=== PATIENT | male | born 1945 | race Caucasian/White ===

== ENCOUNTER → 2020-05-27 15:20 | Outpatient (CLI) | payer MEDICARE, SELFPAY ==
[2020-05-27] MEDS: COVID-19 VACC #1, MRNA(MOD) 100 MCG/0.5 ML VIAL IM (15:31)
== END ==
PROVIDERS: Visit Provider Internal Medicine
DX: Z23 Encounter for immunization (principal)
CPT/HCPCS: 0011A; 91301

== ENCOUNTER → 2020-06-26 15:53 | Outpatient (CLI) | payer MEDICARE, SELFPAY ==
[2020-06-26] MEDS: COVID-19 VACC #2, MRNA(MOD) 100 MCG/0.5 ML VIAL IM (16:02)
== END ==
PROVIDERS: Visit Provider Internal Medicine
DX: Z23 Encounter for immunization (principal)
CPT/HCPCS: 0012A; 91301

== ENCOUNTER 2024-02-22 06:47 | Inpatient (IN) | payer MEDICARE, SELFPAY ==
[2024-02-22] VITALS (74 sets, daily range): BP systolic 112–161; BP diastolic 55–97; PULSE 50–158; RESP 12–41; TEMP 36.1–36.7; O2SAT 88–96; BMI 36.9
--- NOTE | 2024-02-22 06:55 | EKG_ITS ---
[facility] [id number] [place] [id number] Test Date: 2024-02-22 Pat Name: Loi Knapp Department: Room: Gender: Male Community Administrator: : 1945 Requested By: Order Number: [id number] Reading MD: Stanlye Rivera Measurements Intervals [place] Rate: 141 P: SD: QRS: -39 QRSD: 98 T: 109 QT: 330 QTc: 505 Interpretive Statements Critical Test Result: High HR Atrial fibrillation with rapid ventricular response Left axis deviation Moderate voltage criteria for LVH, may be normal variant ( R in aVL , [place] product ) Cannot rule out Anterior infarct , age undetermined ST & T wave abnormality, consider lateral ischemia Electronically Signed On 02-22-2024 11:26:39 PDT by Stanley Rivera
--- NOTE | 2024-02-22 06:56 | DI.RAD.S_ITS ---
PROCEDURE: XR CHEST 1V INDICATIONS: New onset AFib TECHNIQUE: One view of the chest was acquired. COMPARISON: None. FINDINGS: Surgical changes and devices: None. Lungs and pleura: Lungs are clear. No pleural effusions or pneumothorax. Calcified pleural plaques. Mediastinum: Mediastinal contours appear normal. Heart size is normal. Bones and chest wall: No suspicious bony lesions. Overlying soft tissues appear unremarkable. IMPRESSION: No acute cardiopulmonary abnormality is seen. Dictated by: Bert Tate M.D. on 02/22/2024 at 7:55 Approved by: Bert Tate M.D. on 02/22/2024 at 7:57
--- NOTE | 2024-02-22 07:04 | PC.NURSE ---
pt also c/o right shoulder pain d/t fall no decrease in ROM no motor sensory deficits noted, no obvious deformities noted
[2024-02-22 07:08] LABS: Add Manual Diff / Slide Review NO; Basophils Absolute Auto 100 /uL (0-100); Basophils Percent Auto 0.8 % (0-2); Eosinophils Absolute Auto 400 /uL (0-450); Eosinophils Percent Auto 2.8 % (2-4); Hematocrit 48.9 % (41-53); Hemoglobin 16.6 g/dL (13.5-17.5); Lymphocytes Absolute Auto 2200 /uL (1100-4500); Mean Corpuscular HGB Conc 33.9 % (30-36); Mean Corpuscular Hemoglobin 30.1 PG (26-34); Mean Corpuscular Volume 88.8 fL (80-100); Monocytes Absolute Auto 700 /uL (0-900); Monocytes Percent Auto 4.6 % (3-14); Neutrophils Absolute Auto 12400 /uL (1500-7000); Neutrophils Percent Auto 77.8 % (50-75); Platelet Count 281 X10^3/uL (150-400); Red Cell Distribution Width 14.3 % (11.6-14.8); White Blood Cell Count 15.9 X10^3/uL (4.5-11.0)
[2024-02-22 07:10] LABS: INR 1.1 (0.9-1.3); Prothrombin Time 12.5 SECONDS (9.4-12.5)
[2024-02-22 07:12] LABS: PTT Partial Thromboplastin Tim 36 SECONDS (25.1-36.5)
[2024-02-22] MEDS: dilTIAZem 25 MG/5 ML SDV 20 MG IV (07:13)
[2024-02-22 07:14] LABS: Alanine Aminotransferase 42 IU/L (<50); Albumin 4.5 g/dL (3.5-5.0); Albumin Globulin Ratio 1.4 (1.0-2.8); Alkaline Phosphatase 121 U/L (38-126); Aspartate Aminotransferase 39 IU/L (17-59); BUN Creatinine Ratio 23.4 (6-22); Bilirubin Total 0.8 mg/dL (0.2-1.3); Blood Urea Nitrogen 33 mg/dL (9-20); Calcium 9.9 mg/dL (8.4-10.2); Carbon Dioxide 28 mmol/L (22-32); Chloride 98 mmol/L (98-107); Creatine Kinase 215 U/L (55-170); Estimated Glomerular Filt Rate 51 mL/min (>60); Globulin 3.3 g/dL (1.7-4.1); Glucose 246 mg/dL (80-110); HEMOLYSIS < 15 (0-50); Lipase 94 U/L (23-300); Magnesium 1.9 mg/dL (1.6-2.3); Potassium 3.5 mmol/L (3.4-5.1); Sodium 138 mmol/L (137-145); Total Protein 7.8 g/dL (6.3-8.2)
[2024-02-22 07:25] LABS: Troponin I < 0.012 ng/mL (0.01-0.034)
--- NOTE | 2024-02-22 07:32 | ED_ITS ---
HPI - Arrhythmia/Palpitations General Chief Complaint: Arrhythmia/Palpitations Stated Complaint: lighthead/dizzy Time Seen by Provider: 02/22/24 06:56 Source: patient, RN notes reviewed and old records reviewed Mode of arrival: EMS Limitations: no limitations History of Present Illness HPI narrative: 78-year-old male history of hypertension dyslipidemia gout who presents with complaint of lightheadedness and fall patient states he woke up felt very lightheaded and had irregular and fast heart rate. Patient states that he did not lose consciousness but did fall did hit his head has a small abrasion on his forehead. States no headache, no loss of conscious no neck or back pain. No chest pain or shortness of breath but can feel that his heart rate is EFAST- negative. lung sliding bilaterally, no free fluid, no hemopericardium, no fluid on left or right gutter.. He states he was very sweaty. He states he feels improved after receiving some medication in his heart rate he does not feel currently although the rate is in the 1 teens and still irregularly irregular. He notes over the past several years he has had episodes sometimes hours at a time where it is felt fast and irregular. He is never mentioned this to his physician. States he did feel little nauseated earlier no vomiting. Denies any swelling in extremities, no issues with bowel movements or urination. Patient does not take any anticoagulants, takes, statin medication for hypertension. Denies any aspirin or thinners. States only prior surgery was a hernia repair. No known drug allergies. Denies tobacco, alcohol or recreational drugs. Primary care is Dr. Nguyen [facility]. He has not ever seen a culture media laboratory assistant before. Related Data Allergies Allergy/AdvReac Type Severity Reaction Status Date / Time No Known Drug Allergies Allergy Verified 02/22/24 07:12 Review of Systems Review of Systems ROS Unobtainable: All systems reviewed & are unremarkable except as noted in HPI and below Exam Narrative Exam Narrative: GEN: well nourished, well appearing male, alert and oriented x 3, patient appears to be in mild distress. HEENT: Patient has a abrasion on his forehead, pupils are equal round reactive to light, extraocular movements are intact, nares are clear, there is no conjunctival pallor. Throat is clear without any exudates, erythema, tonsillar enlargement or uvular deviation HEART: Regular rate and rhythm without murmur, clicks, rubs. No carotid bruits, pulses are equal in upper and lower extremities LUNGS:Lungs clear to auscultation, no wheezes, rales, crackles, chest moves symmetrically ABD:bowel sounds normal, soft, non-tender, no guarding, rebound, rigidity, no masses noted, no hepatosplenomegaly :No CVA tenderness MSCL: Non-tender, no muscle atrophy, muscles strength 5/5 upper and lower extremities, full range of motion. NEURO:CN 2-12 intact, sensation normal Initial Vital Signs Initial Vital Signs: Vital Signs Temperature 97 F L 02/22/24 06:58 Pulse Rate 143 H 02/22/24 06:58 Respiratory Rate 18 02/22/24 06:58 Blood Pressure 118/97 H 02/22/24 06:58 Pulse Oximetry 93 02/22/24 06:58 Oxygen Delivery Method Room Air 02/22/24 06:58 Scores CHADS-VASc Congestive heart failure: no Hypertension: yes Age 75 years or older: yes Diabetes mellitus: no Stroke, TIA, or TE: no Vascular disease: no Age 65 to 74 years: no Sex category (female): Male CHADS-VASc Score: 3 Course Orders Ordered: ED Orders 02/22/24 06:40 Complete Blood Count AUTO DIFF Stat Comprehensive Metabolic Panel Stat Lipase Stat Magnesium Stat PTT Partial Thromboplastin Felix Stat Prothrombin Time INR Stat Troponin & CK Cardiac Panel Stat 02/22/24 06:56 XR chest 1V Stat EKG-12 Lead Stat 02/22/24 07:45 CT head/brain wo con Stat 02/22/24 07:56 Covid-19 + FLU A/B + RSV - PCR Stat Diltiazem HCl 125 mg/ Sodium (Chloride) 125 mls @ 5 mls/hr IV TITRATE QUAN; Protocol Last Titration: 02/22/24 08:21 Dose: 12.5 mg/hr, 12.5 mls/hr Documented By: Titration: 02/22/24 08:09 Dose: 10 mg/hr, 10 mls/hr Documented By: Admin: 02/22/24 07:46 Dose: 5 mg/hr, 5 mls/hr Documented By: MPO Discontinued Medications Diltiazem HCl (Diltiazem 25 Mg/5 Ml Sdv) 20 mg IV NOW ONE Stop: 02/22/24 06:58 Last Admin: 02/22/24 07:13 Dose: 20 mg Documented By: TAY Diltiazem HCl (Diltiazem 30 Mg Tablet) 30 mg PO NOW ONE Stop: 02/22/24 08:30 Vital Signs Vital signs: Vital Signs - 8 hr 02/22/24 06:58 02/22/24 07:13 02/22/24 07:46 Temperature 97 F L Pulse Rate 143 H 145 H 126 H Respiratory Rate 18 Blood Pressure 118/97 H 130/78 129/72 Pulse Oximetry 93 Oxygen Delivery Method Room Air MDM - Arrhythmia/Palpitations Lab Data 02/22/24 06:40 02/22/24 06:40 Labs: Lab Results 02/22/24 Range/Units 06:40 WBC 15.9 H (4.5-11.0) X10^3/uL RBC 5.50 (4.5-5.9) X10^6/uL Hgb 16.6 (13.5-17.5) g/dL Hct 48.9 (41-53) % MCV 88.8 (80-100) fL MCH 30.1 (26-34) PG MCHC 33.9 (30-36) % RDW 14.3 (11.6-14.8) % Plt Count 281 (150-400) X10^3/uL Neut % (Auto) 77.8 H (50-75) % Lymph % (Auto) 14.0 L (25-40) % [place] % (Auto) 4.6 (3-14) % Eos % (Auto) 2.8 (2-4) % Baso % (Auto) 0.8 (0-2) % Neut # (Auto) 69980 H (6609-9475) /uL Lymph # (Auto) 2200 (5575-1459) /uL [place] # (Auto) 700 (0-900) /uL Eos # (Auto) 400 (0-450) /uL Baso # (Auto) 100 (0-100) /uL PT 12.5 (9.4-12.5) SECONDS INR 1.1 (0.9-1.3) APTT 36 (25.1-36.5) SECONDS Sodium 138 (137-145) mmol/L Potassium 3.5 (3.4-5.1) mmol/L Chloride 98 (98-107) mmol/L Carbon Dioxide 28 (22-32) mmol/L BUN 33 H (9-20) mg/dL Creatinine 1.41 H (0.66-1.25) mg/dL Estimated GFR 51 L (>60) mL/min BUN/Creatinine Ratio 23.4 H (6-22) Glucose 246 H (80-110) mg/dL Calcium 9.9 (8.4-10.2) mg/dL Magnesium 1.9 (1.6-2.3) mg/dL Total Bilirubin 0.8 (0.2-1.3) mg/dL AST 39 (17-59) IU/L ALT 42 (<50) IU/L Alkaline Phosphatase 121 (38-126) U/L Total Creatine Kinase 215 H (55-170) U/L Troponin I < 0.012 (0.01-0.034) ng/mL Total Protein 7.8 (6.3-8.2) g/dL Albumin 4.5 (3.5-5.0) g/dL Globulin 3.3 (1.7-4.1) g/dL Albumin/Globulin Ratio 1.4 (1.0-2.8) Lipase 94 (23-300) U/L ECG Data Attestation: I personally reviewed and interpreted this ECG as follows: Prior ECG tracings: not available for review Interpretation: AFib with rapid ventricular response rate of 141 QRS of 98 QTC 505, nonspecific change. No priors for comparison. MDM Narrative Medical decision making narrative: 78-year-old male AFib RVR did have near syncopal episode and did hit his head with the abrasion. Denies headache he has not anticoagulated but patient will likely end up on anticoagulants so head CT was ordered, labs EKG and chest x-ray were ordered as well. Labs show white count of 15.9 hemoglobin of 16 platelets of 281. Coags are negative, creatinine is 1.41 no priors for comparison BUN 33, sodium is 138 potassium 3.5 chloride 98 CO2 is 28 glucose is 246 normal LFTs CK is 215 troponins less than 0.012. EKG shows AFib with RVR. Chest x-ray shows no acute change Head CT was negative for acute change does show chronic sinusitis. RSV/influenza/COVID was obtained as patient has had recent nasal congestion upper respiratory infection. Patient states he did have a home swab which was negative. Patient received 20 mg of diltiazem with improvement in rate although not complete normalization is swollen atrial fibrillation. Patient is not anticoagulated describes having intermittent episodes for hours at a time over at least a year or 2. Did not felt appropriate for candidate for cardioversion so started on diltiazem drip. Patient's heart rate 121 blood pressures have been maintaining diltiazem was increased. Spoke with Dr. Rivera hospitalist accepts for admission does ask that we give 30 mg of diltiazem orally. Critical Care Time Critical Care Time Critical Care Time: Yes Total Critical Care Time: 35 Attestation: The high probability of a clinically significant, sudden or life threatening deterioration of the cardiac system(s) required my full and direct attention, intervention and personal management. The aggregate critical care time was [--] minutes. This time is in addition to time spent performing reported procedures but includes the following: [x] Data Review and interpretation [x] Patient assessment and monitoring of vital signs [x] Documentation [x] Medication orders and management Discharge Plan Departure Patient Disposition: Admitted As Inpatient Clinical Impression: Atrial fibrillation with rapid ventricular response Admit Date/Time: 02/22/24 08:30 Admit Provider: Stanley Rivera
--- NOTE | 2024-02-22 07:45 | DI.CT.S_ITS ---
PROCEDURE: CT HEAD/BRAIN WO CON INDICATIONS: dizzy, hit head TECHNIQUE: Noncontrast 4.5 mm thick angled axial sections acquired from the foramen magnum to the vertex, with coronal and sagittal reformats. For radiation dose reduction, the following was used: automated exposure control, adjustment of mA and/or kV according to patient size. COMPARISON: None. FINDINGS: Image quality: Diagnostic. CSF spaces: Basal cisterns are patent. No extra-axial fluid collections. The ventricles are symmetric in size and shape. Brain: No intracranial bleeds or masses. There is cerebral volume loss for age, with resultant ventricular and sulcal prominence. There are periventricular and deep white matter chronic small vessel ischemic changes. There is intracranial internal carotid artery atherosclerosis. Skull and face: Calvarium and visualized facial bones appear intact, without suspicious lesions. Sinuses: Bilateral anterior ethmoid patchy opacification and mucosal thickening. Bilateral maxillary sinus mucosal thickening. No air-fluid levels. IMPRESSION: No acute intracranial pathology. Chronic sinusitis. Dictated by: Bert Tate M.D. on 02/22/2024 at 7:58 Approved by: Bert Tate M.D. on 02/22/2024 at 7:59
[2024-02-22] MEDS: dilTIAZem 125 MG in SODIUM CHLORIDE 0.9% 100 ML IV (07:46)
[2024-02-22 08:39] LABS: COVID-19 CEPHEID 4-PLEX PCR Negative (Negative); Influenza A - CEPHEID Flu A NEGATIVE (NEGATIVE); Influenza B - CEPHEID Flu B NEGATIVE (NEGATIVE); Respiratory Syncytial Virus Negative (Negative)
[2024-02-22] MEDS: dilTIAZem 30 MG TABLET PO (08:41)
--- NOTE | 2024-02-22 09:08 | PC.NURSE ---
Pt reports that he is feeling lightheaded and weak. Denies cp/sob HR has improved and remains in 110s. Pt a&ox4.
--- NOTE | 2024-02-22 10:36 | PC.NURSE ---
Day shift: Pt in room 227 from ED at approx 1015. He is ICU status. Dilt drip titrated down from 12 mg/hr to 6mg/hr per protocol. VS WNL. Pt does state that he becomes lightheaded when sitting up and standing. Spouse at bedside for support. Oriented to room and call light. Uses urinal while standing. Dr Rivera aware Pt in room. Awaiting ICU orders at 1040. Will continue to monitor. Pt is on tele also.
--- NOTE | 2024-02-22 10:36 | PM.HP.1 ---
History of Present Illness History of Present Illness Date Patient Seen: 02/22/24 Time Patient Seen: 11:30 Chief complaint: lighthead/dizzy Narrative: The patient is a 78-year-old male with history of hypertension, dyslipidemia, and gout. He was had a URI for the last several days. He felt okay last night when he went to bed. This morning he felt lightheaded and set up in his bed and then fell off. He would palpitations and tachycardia. He denies any LOC. He did have a small contusion on the right forehead. He denies any headache, or neck pain. He also denies any dyspnea. He did have a cough which is improved as of today. In the ED he was found to be in atrial fibrillation with rapid response and started on a diltiazem bolus and drip with good results. He then converted prior to transfer to the floor. He was still feels quite weak. Notes a history of paroxysmal palpitations for the last several years and occur about once a month. No formal diagnosis of atrial fibrillation. His lungs have been wheezy the last couple of days, he was no chronic pulmonary problems. He denies any diarrhea. His respiratory swab was negative. His right shoulder is sore from the fall. He was limited ability to lift it above his head. It is mostly tender at the right AC joint. Meds Home Medications and Allergies Home Medications Medication Instructions Recorded Confirmed Type allopurinol 100 mg tablet 200 mg PO DAILY 02/22/24 02/22/24 History calcium carbonate-vitamin D3 500 mg PO TID 02/22/24 02/22/24 History chlorthalidone 25 mg tablet 25 mg PO DAILY 02/22/24 02/22/24 History colchicine 0.6 mg tablet 0.6 mg PO DAILY 02/22/24 02/22/24 History rosuvastatin 5 mg tablet 5 mg PO DAILY 02/22/24 02/22/24 History Allergies Allergy/AdvReac Type Severity Reaction Status Date / Time No Known Drug Allergies Allergy Verified 02/22/24 07:12 Review of Systems Review of Systems Narrative: All else reviewed and otherwise unremarkable except as noted in the history and physical. Exam Vital Signs (past 8 hours): - 02/22/24 06:52 02/22/24 06:55 02/22/24 06:55 Temperature Pulse Rate 147 H 158 H Respiratory Rate 16 15 Blood Pressure 118/97 H Pulse Oximetry 92 91 Oxygen Delivery Method 02/22/24 06:58 02/22/24 07:00 02/22/24 07:00 Temperature 97 F L Pulse Rate 143 H 117 H Respiratory Rate 18 14 Blood Pressure 118/97 H 130/81 Pulse Oximetry 93 94 Oxygen Delivery Method Room Air 02/22/24 07:12 02/22/24 07:12 02/22/24 07:13 Temperature Pulse Rate 115 H 145 H Respiratory Rate 17 Blood Pressure 115/57 L 130/78 Pulse Oximetry 91 Oxygen Delivery Method 02/22/24 07:30 02/22/24 07:30 02/22/24 07:46 Temperature Pulse Rate 114 H 126 H Respiratory Rate 13 Blood Pressure 129/72 129/72 Pulse Oximetry 93 Oxygen Delivery Method 02/22/24 07:53 02/22/24 07:53 02/22/24 07:54 Temperature Pulse Rate 120 H Respiratory Rate 12 Blood Pressure 125/60 124/69 Pulse Oximetry 90 L Oxygen Delivery Method 02/22/24 07:54 02/22/24 08:00 02/22/24 08:08 Temperature Pulse Rate 123 H 116 H Respiratory Rate 12 18 Blood Pressure 112/58 L Pulse Oximetry 93 91 Oxygen Delivery Method 02/22/24 08:08 02/22/24 08:10 02/22/24 08:10 Temperature Pulse Rate 116 H 148 H Respiratory Rate 14 18 Blood Pressure 133/59 L Pulse Oximetry 91 93 Oxygen Delivery Method 02/22/24 08:15 02/22/24 08:15 02/22/24 08:20 Temperature Pulse Rate 152 H Respiratory Rate 18 Blood Pressure 131/66 130/60 Pulse Oximetry 92 Oxygen Delivery Method 02/22/24 08:20 02/22/24 08:25 02/22/24 08:25 Temperature Pulse Rate 155 H 123 H Respiratory Rate 17 18 Blood Pressure 126/62 Pulse Oximetry 90 L 89 L Oxygen Delivery Method 02/22/24 08:30 02/22/24 08:30 02/22/24 08:35 Temperature Pulse Rate 113 H Respiratory Rate 17 Blood Pressure 123/57 L 114/70 Pulse Oximetry 89 L Oxygen Delivery Method 02/22/24 08:35 02/22/24 08:40 02/22/24 08:40 Temperature Pulse Rate 114 H 137 H Respiratory Rate 22 17 Blood Pressure 133/80 Pulse Oximetry 88 L Oxygen Delivery Method 02/22/24 08:41 02/22/24 08:45 02/22/24 08:45 Temperature Pulse Rate 147 H 118 H Respiratory Rate 15 Blood Pressure 133/80 149/78 H Pulse Oximetry 92 Oxygen Delivery Method 02/22/24 08:50 02/22/24 08:50 02/22/24 08:55 Temperature Pulse Rate 112 H Respiratory Rate 16 Blood Pressure 120/69 140/79 Pulse Oximetry 89 L Oxygen Delivery Method 02/22/24 08:55 02/22/24 09:00 02/22/24 09:00 Temperature Pulse Rate 110 H 134 H Respiratory Rate 18 17 Blood Pressure 134/76 Pulse Oximetry 92 Oxygen Delivery Method 02/22/24 09:05 02/22/24 09:05 02/22/24 09:10 Temperature Pulse Rate 119 H Respiratory Rate 18 Blood Pressure 126/68 133/73 Pulse Oximetry 93 Oxygen Delivery Method 02/22/24 09:10 02/22/24 09:15 02/22/24 09:15 Temperature Pulse Rate 123 H 128 H Respiratory Rate 17 14 Blood Pressure 143/89 H Pulse Oximetry 93 Oxygen Delivery Method 02/22/24 09:20 02/22/24 09:20 02/22/24 09:25 Temperature Pulse Rate 115 H 113 H Respiratory Rate 16 17 Blood Pressure 139/83 Pulse Oximetry 90 L 92 Oxygen Delivery Method 02/22/24 09:25 02/22/24 09:30 02/22/24 09:30 Temperature Pulse Rate 111 H Respiratory Rate 17 Blood Pressure 137/73 139/69 Pulse Oximetry 91 Oxygen Delivery Method 02/22/24 09:35 02/22/24 09:35 Temperature Pulse Rate 112 H Respiratory Rate 13 Blood Pressure 129/64 Pulse Oximetry 93 Oxygen Delivery Method Oxygen Delivery Method Room Air Narrative Exam Narrative: NAD, alert and oriented, fluent speech, calm. Small bruise on the right aspect of his forehead. Normocephalic skull, EOMI, anicteric sclera, symmetric pupils. Oropharynx unremarkable, no droop. Neck supple, midline trachea, no adenopathy. Lungs clear, normal rate and effort. Heart regular, no murmur gallop or rub. Abdomen is soft, non distended and non tender. Extremities are free of edema. Skin is free of rash or lesions. Joints are not swollen or deformed. Judgment appears to be normal. Objective ECG Impression: Atrial fibrillation with rapid ventricular response Left axis deviation Moderate voltage criteria for LVH, may be normal variant ( R in aVL , [place] product ) Cannot rule out Anterior infarct , age undetermined ST & T wave abnormality, consider lateral ischemia Imaging Multiple studies:: Radiologist's impression: Head CT: No acute intracranial pathology. Chronic sinusitis. Chest x-ray: No acute cardiopulmonary abnormality is seen. Labs 02/22/24 06:40 02/22/24 06:40 Labs: Laboratory Results - last 24 hr 02/22/24 02/22/24 06:40 07:56 WBC 15.9 H RBC 5.50 Hgb 16.6 Hct 48.9 MCV 88.8 MCH 30.1 MCHC 33.9 RDW 14.3 Plt Count 281 Neut % (Auto) 77.8 H Lymph % (Auto) 14.0 L [place] % (Auto) 4.6 Eos % (Auto) 2.8 Baso % (Auto) 0.8 Neut # (Auto) 89349 H Lymph # (Auto) 2200 [place] # (Auto) 700 Eos # (Auto) 400 Baso # (Auto) 100 PT 12.5 INR 1.1 APTT 36 Sodium 138 Potassium 3.5 Chloride 98 Carbon Dioxide 28 BUN 33 H Creatinine 1.41 H Estimated GFR 51 L BUN/Creatinine Ratio 23.4 H Glucose 246 H Calcium 9.9 Magnesium 1.9 Total Bilirubin 0.8 AST 39 ALT 42 Alkaline Phosphatase 121 Total Creatine Kinase 215 H Troponin I < 0.012 Total Protein 7.8 Albumin 4.5 Globulin 3.3 Albumin/Globulin Ratio 1.4 Lipase 94 SARS-CoV-2 (PCR) Negative Influenza A (RT-PCR) Flu a negative Influenza B (RT-PCR) Flu b negative RSV (PCR) Negative Assessment & Plan Assessment & Plan narrative: 1. Atrial fibrillation with rapid response, now cardioverted. Present on admission and resolved. 2. Probable PAF. 3. Recent URI with intermittent wheezing, present on admission and active. 4. Hypertension, present on admission and stable. 5. Right shoulder pain after fall, present on admission and active. 6. Head contusion, present on admission and active. Plan: -Toprol 25 XL daily, start now. -telemetry -echo to assess LV EF and rule out evidence of valve disease. -right shoulder x-ray -resume usual blood pressure medicines and monitor. Full code is proxy decision maker GERARD is February 22. Time-Based Coding :: 35 min spent with patient and on the chart (including review of chart, obtaining history, exam, reviewing outside data, placing orders, documenting exam and treatment plan, and counseling patient) on 02/21. Quality MIPS - Admit I confirm the patient?s Advance Care Plan is present, Code status is documented, Surrogate decision maker is in patient?s record [If Yes, STOP here]: Yes MIPS - Meds 'Current medications' to include all prescriptions, [id number] products, herbals, cannabis/cannabidiol products, and vitamin/mineral/dietary (nutritional) supplements. I have utilized all available resources to obtain, update, or review the patient?s current medications. [If Yes, STOP here]: Yes
--- NOTE | 2024-02-22 11:22 | DI.ECHO.S_ITS ---
[facility]+ [facility] : : [address] : : [place] : : [id number] : : Phone: [phone] Echocardiogram Report + + :Name: MARIO CHANEL Study Date: 02/22/2024 Height: 71 in : :[facility] ReadingLocation: Weight: 265 lb : : Gender: Male BSA: 2.4 m2 : :: 1945 Age: 78 yrs BP: 136/65 mmHg: :Reason For Study: ATRIAL FIBRILLATION AND WEAKNESS : :Ordering Physician: THOM, : :DEEJAY Hu Performed By: Bina Thomas : :Referring: DEEJAY TOMAS : + + Interpretation Summary The left ventricle is mildly dilated. The ejection fraction is estimated to be 55-60%. Diastolic parameters suggest probable normal left ventricular diastolic function and normal filling pressures. The right ventricle is normal in size and function. There is mild mitral regurgitation. There is mild aortic regurgitation. Pulmonary artery pressures cannot be estimated because of the lack of a measurable TR jet velocity. Procedure: A two-dimensional transthoracic echocardiogram with color flow and Doppler was performed. The study quality was technically adequate. There is no prior echocardiogram noted for this patient. The patient was in sinus bradycardia with heart rates between 58-64 bpm during the exam. Left Ventricle: The left ventricle is mildly dilated. There is borderline concentric left ventricular hypertrophy. The ejection fraction is estimated to be 55-60%. Diastolic parameters suggest probable normal left ventricular diastolic function and normal filling pressures. Right Ventricle: The right ventricle is normal in size and function. Atria: The left atrial size is normal. Right atrial size is normal. There is no Doppler evidence for an interatrial shunt. Mitral Valve: The mitral valve leaflets appear mildly thickened, but open well. There is mild mitral regurgitation. Aortic Valve: The aortic valve is not well visualized. The aortic valve is slightly calcified. There is no aortic valve stenosis. There is mild aortic regurgitation. Tricuspid Valve: The tricuspid valve is normal in structure and function. There is trace tricuspid regurgitation. Pulmonary artery pressures cannot be estimated because of the lack of a measurable TR jet velocity. Pulmonic Valve: The pulmonic valve is not well visualized. There is no pulmonic valvular regurgitation. Great Vessels: The aortic root is normal size. The dimensions of the ascending aorta are normal. The inferior vena cava was not visualized. Pericardium/ Pleura There is no pericardial effusion. There is no pleural effusion. MMode/2D Measurements & Calculations LVIDd: 5.9 cm LVOT diam: 2.3 cm LVIDs: 4.4 cm Ao root diam: 3.6 cm FS: 25.6 % asc Aorta Diam: 3.8 cm EPSS: 1.1 cm IVSd: 1.0 cm LVPWd: 1.0 cm LV brown. diameter/BSA (cm/m^2): 2.5 LV sys. diameter/BSA (cm/m^2): 1.9 LA A2 area: 17.0 cm2 RA long axis: 4.5 cm LA A4 area: 18.5 cm2 RA area: 13.6 cm2 LA length (vol): 5.5 cm RA vol: 35.0 ml LA vol: 48.8 ml RA : 14.7 ml/m2 LA vol index: 20.5 ml/m2 RVD1 (basal): 3.5 cm RVD2 (mid): 3.4 cm TAPSE: 1.8 cm Doppler Measurements & Calculations Ao V2 max: 165.1 cm/sec LVOT Max Kermit: 119.3 cm/sec Ao V2 mean: 110.7 cm/sec LV V1 max P.7 mmHg Ao max P.9 mmHg LV V1 VTI: 28.9 cm Ao mean P.6 mmHg CRYSTAL(I,D): 3.4 cm2 Ao V2 VTI: 34.1 cm CRYSTAL(V,D): 2.9 cm2 sev ratio: 0.85 CRYSTAL indexed to BSA (cm^2/m^2): 1.4 AI P1/2t: 633.7 msec AI dec slope: 163.2 cm/sec2 MV E max kermit: 57.1 cm/sec TR max kermit: 256.0 cm/sec MV A max kermit: 49.5 cm/sec TR max P.2 mmHg MV E/A: 1.2 PA V2 max: 94.4 cm/sec Med Peak E' Kermit: 5.3 cm/sec PA V2 mean: 68.1 cm/sec E/E' med: 10.7 PA mean P.1 mmHg Lat Peak E' Kermit: 10.7 cm/sec PA pr(Accel): 41.3 mmHg E/E' lat: 5.3 E/e' average: 8.0 MV dec time: 0.24 sec SV(LVOT): 115.0 ml Reading Physician:04:53 PM
[2024-02-22] MEDS: METOPROLOL ER 25 MG TABLET PO (11:36)
--- NOTE | 2024-02-22 12:31 | DI.RAD.S_ITS ---
PROCEDURE: XR SHOULDER RT MIN 2V INDICATIONS: pain after fall TECHNIQUE: 3 views of the shoulder were acquired. COMPARISON: None. FINDINGS: Bones: No acute fractures or dislocations. No suspicious bony lesions. Visualized ribs appear intact. Nrxa-[id number] glenohumeral and acromioclavicular osteoarthrosis. Soft tissues: No suspicious soft tissue calcifications. IMPRESSION: 1. No acute osseous abnormality. If there is continued clinical concern or persistent symptoms, repeat radiographs or cross-sectional imaging (e.g. CT, MRI) may be helpful for further evaluation. 2. Fchm-xh-rzxwtfqf glenohumeral and acromioclavicular osteoarthrosis. Approved by: Harley Nicholas M.D. on 02/22/2024 at 13:03
--- NOTE | 2024-02-22 16:20 | PT.IPTN ---
Physical Therapy Treatment Note M2 PT-IP Current Condition Start: 02/22/24 17:52 Freq: NEEDED Status: Active Protocol: Document 02/22/24 16:20 AB (Rec: 02/22/24 18:07 AB [id number]) Physical Therapy Current Condition Current Condition Evaluation Date 02/22/24 Treatment Diagnosis A-fib; difficulty in walking Onset Date 02/22/24 M3 PT-IP Subjective Start: 02/22/24 17:52 Freq: NEEDED Status: Active Protocol: Document 02/22/24 16:20 AB (Rec: 02/22/24 18:07 AB [id number]) Subjective Physical Therapy Visit Type Type Initial Evaluation Visit Start Time 16:20 Visit Stop Time 17:00 Number of INTERACTIVE VIDEO TECHNICIAN Visits 0 Physical Therapy Visit Comments Patient Comments agreeable to do PT Therapy Pain Assessment Pain When Pain Assessed At Rest Location Right Shoulder Intensity 6 Scale Used Numeric (0 - 10) Pain Management Techniques Distraction,Modification of Treatment,Re-positioning, Timing of Activity with Medications M4 PT-IP Mobility and Gait Start: 02/22/24 17:52 Freq: NEEDED Status: Active Protocol: Document 02/22/24 16:20 AB (Rec: 02/22/24 18:07 AB [id number]) PT-Bed Mobility Assessment Supine to Sit Supine to Sit Standby Assistance PT-Transfer Assessment Sit to and From Stand Sit to and from Stand Minimal Assistance,1 Person Assistance,Use of Upper Extremities Equipment Transfer Assistive Device Gait Belt,Front Wheeled Walker Orthotic/Prosthetic Devices or Brace: No Transfers Transfer Destination Chair Transfer Technique ambulated Transfer Ability Level of Assist Minimal Assistance,1 Person Assistance,Use of Upper Extremities Comments Mobility Comments pt supine in bed and agreeable to do PT. obtained PLOF and home set up. BP checked: 137/ 63. pt completed supine to sit SBA but can be impulsive and tends to throw/ jeck upper trunk forward to sit up needing to hold on to armrest of chair to control. educated pt on safety and possible bed cane at home if needed. pt understood. pt able to sit on EOB SBA. c/o initiall dizziness but dissipated afte a few seconds of sitting up. BP checked: 134/69. pt completed sit to stand min A and cues. c/o lightheadedness . BP checked: 115/59. pt remained standing for ~ 2 more minutes. BP rechecked: 117/ 65. pt wants to walk and ambulated in room ~ 12 ft using FWW min A and cues. presents with unsteady gait with increase R lateral lurch during walking. pt sat on the chair. BP rechecked: 129/63. positioned pt on the chair. call light and table placed within reach. informed nurse regarding pt's BP and mobility. Gait Assessment Gait Gait Assistance Required: Minimum Assistance Distance (Feet) 12 Able to Maintain Weight Bearing Status Yes During Gait Assistive Devices Assistive Device Gait Belt,Front Wheeled Walker Orthotic/Prosthetic Devices or Brace: No Gait Deviations General Gait Pattern Ataxic,Decreased Stride Length ,Decreased Feet Clearance,Step -to Gait Factors Limiting Gait Function Factors Limiting Gait Function Abnormal Tonal Influences, Decreased Activity Tolerance, Decreased Strength,Difficulty Following Directions,Limited Range of Motion,Pain,Poor Balance,Poor Safety Awareness PT-Balance Assessment Sitting Balance and Reactions Static Sitting Balance Ability Normal Dynamic Sitting Balance Ability Good Standing Balance and Reactions Static Standing Balance Ability Fair Dynamic Standing Balance Ability Fair Device Used FWW M5 PT-IP Objective Assessments Start: 02/22/24 17:52 Freq: NEEDED Status: Active Protocol: Document 02/22/24 16:20 AB (Rec: 02/22/24 18:07 AB [id number]) Orientation Orientation/Cognition Level of Alertness Alert Orientation Name,Place,Situation Language Function Ability No Deficits Noted Safety Awareness Decreased Safety Awareness Memory Description No Deficits Noted Gross Range of Motion Lower Extremity ROM Assessment Within Functional Limits Strength Lower Extremity Strength Assessment Within Functional Limits Coordination Assessment Gross Coordination Gross Coordination WNL Sensation Assessment Sensation Gross Sensation WNL Muscle Tone Muscle Tone WNL Yes M6 PT-IP Treatment Start: 02/22/24 17:52 Freq: NEEDED Status: Active Protocol: Document 02/22/24 16:20 AB (Rec: 02/22/24 18:07 AB [id number]) Physical Therapy Treatment Education Education Provided Safety M7 PT-IP Assessment and Plan Start: 02/22/24 17:52 Freq: NEEDED Status: Active Protocol: Document 02/22/24 16:20 AB (Rec: 02/22/24 18:07 AB [id number]) PT Summary Assessment and Plan Potential Rehabilitation Potential Fair Status of Condition at Evaluation Evolving Summary Impairments Pain,ROM,Strength,Balance, Coordination,Sensation,Tone, Cognition,Bed Mobility, Transfers,Gait,Activity Tolerance Assessment Summary pt is a 78 y/o M who presented with dizziness s/p fall. pt admitted fro A-fib. pt requiring min A for transfers and ambulation using FWW and presents with orthostatic hypotension from 137/63 supine to 115/59 standing with c/o lightheadedness. pt lives with spouse and stated that spouse will be able to assist him. will continue to assess progress. Goals Bed Mobility Goal Independent Transfer Goal Independent,Front Wheeled Walker Gait Goal Independent,Front Wheel Walker Gait Distance 150 Other Goals up/down 18 steps B rails SBA Days to Meet Goals 10 Frequency of Treatment Frequency Of Treatment Once a Day Treatment Plan Physical Therapy Treatment Plan Bed Mobility Training,Transfer Training,Gait Training, Therapeutic Exercise,Balance Retraining,Discharge Planning, Hot or Cold Pack,Neuromuscular Re-ed,Coordination Retraining ,Manual Therapy Precautions Other Precautions falls, BP Recommendations To Nursing Amount of Assist Needed 1 Person Assist Discharge Recommendations PT Discharge Recommendations Home with 24/7 Assist Available,Home Health Transportation Needs at Discharge Private Vehicle,Wheelchair/ Cabulance
[2024-02-22] MEDS: IBUPROFEN 400 MG TABLET 200 MG PO (17:08)
[2024-02-22] MEDS: ACETAMINOPHEN 325 MG TABLET 650 MG PO (17:46)
[2024-02-22] MEDS: TRAMADOL 50 MG TABLET PO (21:50)
[2024-02-23] VITALS (26 sets, daily range): BP systolic 123–157; BP diastolic 59–72; PULSE 47–82; RESP 12–35; TEMP 36.3–36.5; O2SAT 94–95
[2024-02-23] MEDS: CALCIUM CARBONATE 500 MG TAB PO (08:44)
[2024-02-23] MEDS: METOPROLOL ER 25 MG TABLET PO (08:44)
[2024-02-23] MEDS: CHOLECALCIFEROL (VITAMIN D3) 400 UNIT TABLET PO (08:44)
[2024-02-23] MEDS: ATORVASTATIN 20 MG TABLET 10 MG PO (08:45)
[2024-02-23] MEDS: allopurinoL 100 MG TABLET 200 MG PO (08:45)
[2024-02-23] MEDS: CHLORTHALIDONE 25 MG TABLET PO (08:45)
--- NOTE | 2024-02-23 10:09 | EKG_ITS ---
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
--- NOTE | 2024-02-23 10:44 | PM.DS.1 ---
History of Present Illness History of Present Illness Chief complaint: lighthead/dizzy Narrative: The patient is a 78-year-old male with history of hypertension, dyslipidemia, and gout. He was had a URI for the last several days. He felt okay last night when he went to bed. This morning he felt lightheaded and set up in his bed and then fell off. He would palpitations and tachycardia. He denies any LOC. He did have a small contusion on the right forehead. He denies any headache, or neck pain. He also denies any dyspnea. He did have a cough which is improved as of today. In the ED he was found to be in atrial fibrillation with rapid response and started on a diltiazem bolus and drip with good results. He then converted prior to transfer to the floor. He was still feels quite weak. Notes a history of paroxysmal palpitations for the last several years and occur about once a month. No formal diagnosis of atrial fibrillation. His lungs have been wheezy the last couple of days, he was no chronic pulmonary problems. He denies any diarrhea. His respiratory swab was negative. His right shoulder is sore from the fall. He was limited ability to lift it above his head. It is mostly tender at the right AC joint. Discharge Providers Provider Date of admission: 02/22/24 08:30 Discharge Date: 02/23/24 Primary care physician: Rob Zamora DO ([facility]) Consults: 02/22/24 11:22 Consult to Physical Therapy Evaluate & Treat Comment: Physician Instructions: Evaluate and Treat Discharge provider: Stanley Rivera MD Summary Hospital Course Discharge Diagnosis: 1. Atrial fibrillation with rapid response, now cardioverted. Present on admission and resolved. 2. Probable PAF. 3. Recent URI with intermittent wheezing, present on admission and active. 4. Hypertension, present on admission and stable. 5. Right shoulder pain after fall, present on admission and active. 6. Head contusion, present on admission and active. Hospital Course: The patient presented with AFib RVR and weakness in context of a recent URI. His PCR was negative. He was given diltiazem IV in the ED and had a spontaneous cardioversion to sinus rhythm while transfer up to the floor. He was given a dose of Toprol and did well overnight. His profound weakness persisted for about the 1st 12 hours after his spontaneous conversion. On the day of discharge he was at baseline, felt energized and desired to go home. He was stable ambulating with a walker. He would express wishes to follow up with Dr. Cote at [facility], as he was heard good things about him. His Odilon Vasc score is 3 placing him at a 2.2% annual risk of stroke. Anticoagulation is recommended to him and he accepts. He did have right shoulder pain associated with his fall which improved by the day of discharge. His x-ray was negative. He shares a history of palpitations about once a month for some time. Status at Discharge Cognitive/behavioral status at discharge: oriented Functional status at discharge: uses cane/walker Overall status at discharge: patient is progressing back to baseline Time Spent with Patient Time spent: Greater than 30 minutes Exam Vital Signs (past 8 hours): - 02/23/24 04:00 02/23/24 07:00 02/23/24 08:36 Temperature 97.3 F L 97.7 F Pulse Rate 64 57 L Respiratory Rate 18 20 Blood Pressure 134/67 123/59 L Pulse Oximetry 95 94 Oxygen Delivery Method Room Air Oxygen Flow Rate 0 0 02/23/24 08:44 Temperature Pulse Rate 57 L Respiratory Rate Blood Pressure 133/59 L Pulse Oximetry Oxygen Delivery Method Oxygen Flow Rate Oxygen Delivery Method Room Air Oxygen Flow Rate 0 Narrative Exam Narrative: NAD, alert and oriented. Fluent speech. Lungs are clear, normal rate and effort. Heart is regular, no murmur gallop or rub. Abdomen is soft, non distended. Extremities are free of edema. Objective ECG Impression: Atrial fibrillation with rapid ventricular response Left axis deviation Moderate voltage criteria for LVH, may be normal variant ( R in aVL , [place] product ) Cannot rule out Anterior infarct , age undetermined ST & T wave abnormality, consider lateral ischemia Imaging MUltiple studies:: Radiologist's impression: Head CT: No acute intracranial pathology. Chronic sinusitis. Chest x-ray: No acute cardiopulmonary abnormality is seen. Labs 02/22/24 06:40 02/22/24 06:40 [facility] Social History household members: spouse Smoking Status: Never smoker alcohol intake: former Discharge Assessment & Plan Assessment and Plan Assessment: 1. Atrial fibrillation with rapid response, now cardioverted. Present on admission and resolved. 2. Probable PAF. 3. Recent URI with intermittent wheezing, present on admission and active. 4. Hypertension, present on admission and stable. 5. Right shoulder pain after fall, present on admission and active. 6. Head contusion, present on admission and active. Plan of Treatment: Discharge home with close follow up with PCP. A message was sent directly to PCP (Rob Emerson DO) requestin. FU PCP appt 2. Cards referral (Kera) 3. ZIO patch Discharge Plan Discharge Plan Patient Disposition: Home Provider Discharge Comment: Stable for discharge home. Discharge orders & Medications Prescriptions: New metoprolol succinate [Toprol XL] 25 mg tablet extended release 24 hr 12.5 mg PO DAILY Qty: 30 1RF apixaban 5 mg tablet 5 mg PO BID Qty: 60 1RF Continued allopurinol 100 mg tablet 200 mg PO DAILY colchicine 0.6 mg tablet 0.6 mg PO DAILY chlorthalidone 25 mg tablet 25 mg PO DAILY rosuvastatin 5 mg tablet 5 mg PO DAILY calcium carbonate-vitamin D3 tablet 500 mg PO TID Medication counseling provided by Pharmacist: No Diet/Activity/Treatments Diet: Carb-consistent/Diabetic Diet comment: He was a walker for the next several days until he feel like you are stable Visit Report/Discharge Packet Instructions: DI for Atrial Fibrillation Stand Alone Forms: Patient Portal/API, Stroke Signs & Symptoms Quality VTE Deep Vein Thrombosis/Pulmonary Embolism Present on Admission: No
--- NOTE | 2024-02-23 10:48 | CM.DANOTE ---
DCP Assessment Note Pt is a 78yo M here with afib with RVR, had a GLF at home resulting in head contusion/right shoulder pain. [facility] [employer] [employer]S WORK[employer] reviewed EMR. Per hospitalist in morning rounds, plan to dc home today, Miguel will be helping to arrange [facility] cardiology f/u. COMMUNITY ARTS WORKER met with pt in room, lives at home with spouse, indep at baseline. Denies any DCP/CM needs at this time. eager for cardiology f/u. P: home with spouse and close OP f/u with PCP/cardiology. no CM needs identified at this time. CM team will continue to follow as needed IDA Sparks Discharge Planning/Care Management CM Discharge Assessment Start: 02/23/24 10:47 Freq: Status: Active Protocol: Document 02/23/24 10:47 SL (Rec: 02/23/24 10:48 SL [id number]) Discharge Planning Assessment Assigned Assistant Warehouse Manager IDA Varela DPOA/Assigned Designee Name dima Benz Contact Information [phone] Advance Directives? No History Provided By Patient Prior Living Arrangements House Household Members spouse Independent with ADL's Yes Is patient alert and oriented? Yes Barriers to Discharge No Discharge Plan Home Referrals Initiated None needed Review Status In Process Please Provide Date Initial DC 02/23/24 Assessment Was Performed Next Review Type Continued Stay Review
== END 2024-02-23 11:06 | disposition home or self-care (01) | DRG 310 ==
LOC: ED 07:30 → AC 08:31 → ICU 09:13
PROVIDERS: Emergency Medicine; Admitting Provider Hospitalist; Emergency Provider Emergency Medicine; Referring Provider Emergency Medicine; Visit Provider Hospitalist
DX: I48.0 Paroxysmal atrial fibrillation (principal); S00.83XA Contusion of other part of head, initial encounter; J06.9 Acute upper respiratory infection, unspecified; I10 Essential (primary) hypertension; M25.511 Pain in right shoulder; R06.2 Wheezing; M10.9 Gout, unspecified; E78.5 Hyperlipidemia, unspecified; W06.XXXA Fall from bed, initial encounter
CPT/HCPCS: 0241U; 70450; 71045; 73030; 80053; 82550; 83690; 83735; 84484; 85025; 85610; 85730; 93005; 93306; 96365; 96366; 96376; 97162; 97530; 99284; 99291

== ENCOUNTER 2024-03-09 09:48 | Emergency (ER) | payer MEDICARE, SELFPAY ==
[2024-02-22 15:38] VITALS: BMI 36.9
[2024-03-09 09:53] VITALS: BP 164/75; PULSE 111; O2SAT 95
[2024-03-09 09:54] VITALS: BP 164/75; PULSE 107; RESP 16; TEMP 36.6; O2SAT 96; BMI 35.1
[2024-03-09 10:00] VITALS: BP 174/70; PULSE 114; O2SAT 96
[2024-03-09] MEDS: LIDOCAINE 2% (GLYDO) 6 ML GEL TOP (10:17)
--- NOTE | 2024-03-09 10:24 | PC.NURSE ---
Pt experiencing bladder spasm and pressure. Has not voided since 0300. States that he tried at approximately 0500 and was unable. 399 bladder scan and lopez placed.
[2024-03-09 10:25] LABS: Appearance Urine UA CLOUDY; Bilirubin Urine UA NEGATIVE (NEGATIVE); Color Urine UA RED; Glucose Urine UA NEGATIVE (Negative); Ketones Urine UA 1+ (NEGATIVE); Leukocyte Esterase Urine UA TRACE (NEGATIVE); Nitrite Urine UA POSITIVE (Negative); Occult Blood Urine UA 3+ (Negative); Protein Urine UA 2+ (Negative)
[2024-03-09 10:27] LABS: Urine Volume 10mL (spun)
[2024-03-09 10:28] LABS: Bacteria Urine None Seen; RBC Urine >100/HPF (0-5/HPF); WBC Urine 5-10/HPF (0-5/HPF)
--- NOTE | 2024-03-09 10:28 | ED_ITS ---
HPI - General Adult General Chief complaint: Urogenital-Male Stated complaint: unable to urinate Time Seen by Provider: 03/09/24 09:53 Source: patient Mode of arrival: Ambulatory History of Present Illness HPI narrative: Patient is a 78-year-old male who states that he has had some issues with urinary hesitancy in the past. Does not have any known issues with his prostate. Does not see urology on a regular basis. Is on anticoagulation. Is here for evaluation of inability to urinate. Symptoms started this morning. He has had issues night in the past but he states normally in the morning he was back to urinating normally but that did not happen this morning. No fevers. No history of urinary tract infections. Is having pressure in his lower abdomen. Related Data Home Medications Medication Instructions Recorded Confirmed allopurinol 100 mg tablet 200 mg PO DAILY 02/22/24 02/22/24 calcium carbonate-vitamin D3 500 mg PO TID 02/22/24 02/22/24 chlorthalidone 25 mg tablet 25 mg PO DAILY 02/22/24 02/22/24 colchicine 0.6 mg tablet 0.6 mg PO DAILY 02/22/24 02/22/24 rosuvastatin 5 mg tablet 5 mg PO DAILY 02/22/24 02/22/24 Previous Rx's Medication Instructions Recorded apixaban 5 mg tablet 5 mg PO BID #60 tabs 02/23/24 metoprolol succinate 25 mg 12.5 mg (1/2 x 25 mg) PO DAILY #30 02/23/24 tablet,extended release 24 hr tabs (Toprol XL) ciprofloxacin HCl 500 mg tablet 500 mg PO BID 7 days #14 tabs 03/09/24 (Cipro) tamsulosin 0.4 mg capsule (Flomax) 0.4 mg PO DAILY #30 caps 03/09/24 Allergies Allergy/AdvReac Type Severity Reaction Status Date / Time No Known Drug Allergies Allergy Verified 02/22/24 07:12 Review of Systems Review of Systems Narrative: See HPI Patient History Social History household members: spouse Smoking Status: Never smoker alcohol intake: former Smoking Status: Never smoker Substance Use Type: does not use Exam Initial Vital Signs Initial Vital Signs: Vital Signs Temperature 97.8 F 03/09/24 09:54 Pulse Rate 107 H 03/09/24 09:54 Respiratory Rate 16 03/09/24 09:54 Blood Pressure 164/75 H 03/09/24 09:54 Pulse Oximetry 96 03/09/24 09:54 Oxygen Delivery Method Room Air 03/09/24 09:54 Const General: cooperative, comfortable and No ill appearing GI Inspection: normal to inspection Other: Macedo catheter in place Skin General: no rashes or lesions noted Neuro General: patient alert and patient awake Course Orders Ordered: ED Orders 03/09/24 10:13 Urinalysis and Microscopic Stat Urine Culture Stat 03/09/24 10:28 Urine Culture Stat Discontinued Medications Lidocaine HCl (Lidocaine 2% (Glydo) 6 Ml Gel) 6 ml TOP NOW ONE Stop: 03/09/24 09:54 Last Admin: 03/09/24 10:17 Dose: 6 ml Documented By: FRANKLIN Vital Signs Vital signs: Vital Signs - 8 hr 03/09/24 09:54 Temperature 97.8 F Pulse Rate 107 H Respiratory Rate 16 Blood Pressure 164/75 H Pulse Oximetry 96 Oxygen Delivery Method Room Air Medical Decision Making Lab Data Lab results reviewed: Yes I reviewed the patient's lab results. Labs: Lab Results 03/09/24 Range/Units 10:13 Urine Color Red Urine Appearance Cloudy Urine pH 5.0 (4.5-8.0) Ur Specific [place] 1.020 (1.000-1.035) Urine Protein 2+ H (Negative) Urine Glucose (UA) Negative (Negative) g/dL Urine Ketones 1+ H (NEGATIVE) Urine Occult Blood 3+ H (Negative) Urine Nitrate Positive H (Negative) Urine Bilirubin Negative (NEGATIVE) Urine Urobilinogen 1.0 (0.2) E.U./dL Ur Leukocyte Esterase Trace H (NEGATIVE) Urine RBC >100/hpf H (0-5/HPF) Urine WBC 5-10/hpf H (0-5/HPF) Ur Squamous Epith Cells None seen (0-5/HPF) Urine Bacteria None seen (None) Ur Culture Indicated? Specimen cultured Vol Urine Centrifuged 10ml (spun) MDM Narrative Medical decision making narrative: Patient was retaining urine pain a Macedo catheter was placed with greater than 800 cc of urine. There is a small amount of blood-tinged urine along with this. Urinalysis is somewhat concerning for urinary tract infection as he was nitrite positive. A urine culture was obtained. Will place him on antibiotics. He was going to need follow-up with Urology. Will discharge home with Macedo catheter in place. He was given return precautions. Discharge Plan Departure Patient Disposition: Home Clinical Impression: Urinary tract infection, Acute urinary retention Instructions: How to Care for Your Macedo Catheter -- Male, DI for Urinary Tract Infection (UTI), DI for Urinary Retention in Men Activity Restrictions/Additional Instructions: I do recommend that you contact the urology office the number provided below. You can even contact them today and I expect a follow-up with them sometime next week to discuss the process of having the Macedo catheter removed. Start taking the antibiotics as directed and also the tamsulosin/Flomax. Be sure that you are staying hydrated. Return to the emergency department for new or worsening symptoms. Prescriptions: New ciprofloxacin HCl [Cipro] 500 mg tablet 500 mg PO BID 7 Days Qty: 14 0RF tamsulosin [Flomax] 0.4 mg capsule 0.4 mg PO DAILY Qty: 30 0RF No Action allopurinol 100 mg tablet 200 mg PO DAILY colchicine 0.6 mg tablet 0.6 mg PO DAILY chlorthalidone 25 mg tablet 25 mg PO DAILY rosuvastatin 5 mg tablet 5 mg PO DAILY calcium carbonate-vitamin D3 tablet 500 mg PO TID metoprolol succinate [Toprol XL] 25 mg tablet extended release 24 hr 12.5 mg PO DAILY Qty: 30 1RF apixaban 5 mg tablet 5 mg PO BID Qty: 60 1RF Referrals: Nathan Berger MD [Physician] - Stand Alone Forms: Patient Portal/API/Survey
[2024-03-09 10:29] LABS: Culture Indicated Urine Specimen Cultured; Squamous Epithelial Cell Urine None Seen (0-5/HPF)
[2024-03-09 10:30] VITALS: PULSE 88; O2SAT 93
[2024-03-09 10:31] VITALS: BP 113/58; PULSE 90; O2SAT 92
[2024-03-09 10:52] VITALS: BP 113/58; PULSE 82; RESP 20; TEMP 37; O2SAT 94
== END 2024-03-09 10:53 | disposition home or self-care (01) ==
PROVIDERS: Emergency Provider Emergency Medicine
DX: N39.0 Urinary tract infection, site not specified (principal); R33.8 Other retention of urine
CPT/HCPCS: 51798; 81001; 87086; 99283

== ENCOUNTER → 2024-03-20 15:52 | Outpatient (CLI) | payer MEDICARE, SELFPAY ==
[2024-02-22 15:38] VITALS: BMI 36.9
== END ==
PROVIDERS: Referring Provider Urology; Visit Provider Urology
DX: N39.0 Urinary tract infection, site not specified (principal)
CPT/HCPCS: 87086